=== PATIENT | male | born 1970 | race Caucasian/White ===

== ENCOUNTER 2016-11-01 06:12 | Emergency (ER) | payer OTHER, MEDICAID ==
[2016-11-01 06:18] VITALS: BP 130/85; PULSE 93; RESP 18; TEMP 97.9; O2SAT 96
[2016-11-01] MEDS ORDERED: IBUPROFEN 200 MG TAB PO ONE (06:30)
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
== END 2016-11-01 06:38 | disposition home or self-care (01) ==
DX: K08.89 Other specified disorders of teeth and supporting structures (principal); F17.200 Nicotine dependence, unspecified, uncomplicated

== ENCOUNTER 2016-12-19 19:49 | Emergency (ER) | payer OTHER, MEDICAID ==
[2016-12-19] MEDS ORDERED: LORazepam 1 MG TAB ONE (19:57)
--- NOTE | 2016-12-19 20:04 | EDPHY ---
H & P Time Seen by Provider: 12/19/16 19:52 HPI/ROS: CHIEF COMPLAINT: Anxiety HISTORY OF PRESENT ILLNESS: 46-year-old male presents to the emergency department by ambulance with the [place] [employer] under rest. The patient states that he is feeling very anxious. Apparently the patient was taken into police custody and when he found out he was going to residential, he apparently ran away. The patient was ultimately placed under arrest and was taken into custody. He was brought to the emergency department for his anxiety and medical clearance for residential. The patient tells me that he has a seizure disorder as well as chronic back pain. He takes clonazepam and oxycodone daily. He has been without this medication however at least since today. He does not know his last dose of clonazepam. He denies alcohol or other substance abuse. He has had seizure in the past. He states he is feeling very anxious and is requesting water. Denies pain in his chest. He denies headache. Does have chronic back pain. He denies pain in his upper or lower extremities. He does tell me that his left hand "doesn't work so good because of my back pain." REVIEW OF SYSTEMS: Constitutional: No fever, no chills. Eyes: No double or blurry vision. ENT: No sore throat. Respiratory: No cough, no shortness of breath. Cardiac: No chest pain. Gastrointestinal: No abdominal pain, vomiting or diarrhea. Genitourinary: No dysuria. Musculoskeletal: Chronic back pain as above. No neck pain. Skin: No rashes. Neurological: No headache. Past Medical/Surgical History: Anxiety, chronic pain Social History: Homeless Smoking Status: Current some day smoker Physical Exam: General Appearance: Alert, anxious. Tearful. No visible signs of trauma to his head. Eyes: Pupils equal and round. Extraocular motions are all intact. ENT: Mouth: Mucous membranes moist. Respiratory: No wheezing, rhonchi, or rales, lungs are clear to auscultation. Cardiovascular: Regular rate and rhythm. Tachycardic with a heart rate of 110. Gastrointestinal: Abdomen is soft and nontender, no masses, no rebound or guarding, bowel sounds normal. Neurological: Alert and oriented x 3, cranial nerves II through XII grossly intact Skin: Warm and dry, no rashes. Musculoskeletal: Nontender to palpate along the cervical, thoracic or lumbar spine. Neck is supple. No signs of trauma to his back. Extremities: Full range of motion and no peripheral edema. Psychiatric: Patient is oriented X 3, there is no agitation. Constitutional: Initial Vital Signs Temperature (C) 36.4 C 12/19/16 19:51 Heart Rate 115 H 12/19/16 19:51 Respiratory Rate 22 H 12/19/16 19:51 Blood Pressure 150/85 H 12/19/16 19:51 O2 Sat (%) 95 12/19/16 19:51 O2 Delivery Mode Room Air Allergies/Adverse Reactions: clindamycin Allergy (Severe, Verified 11/01/16 06:18) Hives trazodone Allergy (Severe, Verified 11/01/16 06:18) Swelling/neck,face,throat Penicillins Allergy (Unknown, Verified 11/01/16 06:18) aspirin Allergy (Verified 11/01/16 06:18) Home Medications: Medication Instructions Recorded LORazepam 12/31/15 oxyCODONE/APAP 5/325 [Percocet 1 - 2 tab PO Q4-6PRN PRN 12/31/15 5/325] HYDROcodone/APAP 10/325 [[place] 1 - 2 each PO Q4-6PRN PRN #20 tab 07/19/16 10/325] Medical Decision Making ED Course/Re-evaluation: 46-year-old homeless male presents to the emergency department for medical clearance for residential. He is extremely anxious. He tells me that he has been without his benzodiazepines, clonazepam, and has had seizures in the past. The patient was given 1 mg of Ativan p.o. in the emergency department. His vital signs remained stable. He was tachycardic initially when he was very anxious and tearful. He understands that he has been medically cleared for residential be discharged with the [place] [employer]. We did try to obtain EKG, however the patient was tremulous and this was unobtainable. The patient tells me that he has no chest pain. He will be discharged. Differential Diagnosis: Including but not limited to anxiety, depression, substance abuse, alcohol withdrawal, seizure disorder, medication noncompliance, narcotic dependence Departure - Departure Disposition: Home, Routine, Self-Care Clinical Impression: Anxiety Condition: Good Instructions: Anxiety (ED) Additional Instructions: You have been medically cleared for residential.
[2016-12-19 20:26] VITALS: BP 152/90; PULSE 106; RESP 20; O2SAT 93
--- NOTE | 2016-12-19 20:39 | CPEKG ---
Heart Rate: 112 RR Interval: 536 P-R Interval: 100 QRSD Interval: 106 QT Interval: 332 QTC Interval: 453 P Como: 0 QRS Como: 54 T Wave Como: 34 EKG Severity - ABNORMAL ECG - EKG Impression: SINUS TACHYCARDIA EKG Impression: RIGHT ATRIAL ABNORMALITY Electronically Signed By: Barbara Simon 20-Dec-2016 10:06:53
[2016-12-19 21:05] VITALS: TEMP 97.9
== END 2016-12-19 21:05 | disposition home or self-care (01) ==
LOC: EDUNIT#
DX: F41.9 Anxiety disorder, unspecified (principal); F17.200 Nicotine dependence, unspecified, uncomplicated

== ENCOUNTER 2017-03-26 15:53 | Emergency (ER) | payer OTHER, MEDICAID ==
--- NOTE | 2017-03-26 16:09 | EDPHY ---
H & P Time Seen by Provider: 03/26/17 15:53 HPI/ROS: CHIEF COMPLAINT: Seizure HISTORY OF PRESENT ILLNESS: 46-year-old male presents to the emergency department by ambulance with [place] [employer] under arrest and needs medical clearance for prison. The patient apparently has a history of seizure disorder and takes clonazepam. He also has chronic back pain and takes oxycodone daily. He has been without his medication for a few days. He was also found by police to have "bags of meth" although the patient states that those are not his and he is just collecting the bags to dispose of them. He is concerned that he is going to have a seizure. He apparently told EMS that he has been having seizures day long. Apparently in transport to the hospital patient states that he was having seizures even while he was alert and oriented x4 for EMS. The patient has chronic back pain. He has chronic pain in his left hand with a history of a previous fracture. He denies chest pain or difficulty breathing. Denies abdominal pain. Per EMS when the patient found out that he was going to be taken to prison, he apparently started shaking violently although still able to converse and talk with EMS. Patient was seen in the emergency department 12/19/2016 with very similar presentation for medical clearance for prison. REVIEW OF SYSTEMS: Constitutional: No fever, no chills. Eyes: No double or blurry vision. ENT: No sore throat. Respiratory: No cough, no shortness of breath. Cardiac: No chest pain. Gastrointestinal: No abdominal pain, vomiting or diarrhea. Genitourinary: No dysuria. Musculoskeletal: Chronic back pain. No neck pain. Skin: No rashes. Neurological: No headache. Past Medical/Surgical History: chronic back pain, substance abuse Social History: and lives in [place] Smoking Status: Current some day smoker Physical Exam: General Appearance: Alert, no distress. Diaphoretic. Extremely anxious. The patient is tremulous. Has a heart rate of 120. No physical signs of trauma to his head. Eyes: Pupils equal and round. Extraocular motions are all intact. ENT: Mouth: Mucous membranes moist. Respiratory: No wheezing, rhonchi, or rales, lungs are clear to auscultation. Cardiovascular: Regular rate and rhythm. Gastrointestinal: Abdomen is soft and nontender, no masses, no rebound or guarding, bowel sounds normal. Neurological: Alert and oriented x 3, cranial nerves II through XII grossly intact Skin: Warm and dry, no rashes. Musculoskeletal: Nontender to palpate along the cervical, thoracic or lumbar spine. Neck is supple. Extremities: Full range of motion and no peripheral edema. Psychiatric: Agitated. Constitutional: Initial Vital Signs Temperature (C) 36.8 C 03/26/17 16:11 Heart Rate 118 H 03/26/17 16:11 Respiratory Rate 20 03/26/17 16:11 Blood Pressure 118/76 03/26/17 16:11 O2 Sat (%) 95 03/26/17 16:11 O2 Delivery Mode Room Air Allergies/Adverse Reactions: clindamycin Allergy (Severe, Verified 03/26/17 16:04) Hives trazodone Allergy (Severe, Verified 03/26/17 16:04) Swelling/neck,face,throat Penicillins Allergy (Unknown, Verified 03/26/17 16:04) aspirin Allergy (Verified 03/26/17 16:04) Home Medications: Medication Instructions Recorded LORazepam 12/31/15 oxyCODONE/APAP 5/325 [Percocet 1 - 2 tab PO Q4-6PRN PRN 12/31/15 5/325] HYDROcodone/APAP 10/325 [Sigel 1 - 2 each PO Q4-6PRN PRN #20 tab 07/19/16 10/325] Medical Decision Making ED Course/Re-evaluation: 46-year-old male with a history of substance abuse and chronic back pain presents to the emergency department in custody with police and complaining that he is having seizures. The patient is tremulous and seems to be voluntarily twitching. He is conversational throughout all of this. I do not think he is having a seizure. This was explained to the patient. The patient thinks that he is likely experiencing symptoms of withdrawal. I agree with this. He was given a mg of Ativan in the emergency department as well as IV normal saline. His heart rate did come down to 100. The charge nurse did speak with the prison and they are aware of his voluntary twitching. The patient has been medically cleared and will be discharged with EMS to prison. Differential Diagnosis: Including but not limited to substance abuse, benzodiazepine withdrawal electrolyte abnormality, alcohol withdrawal, medication noncompliance, head injury, and breakthrough seizure. - Data Points Medications Given: Discontinued Medications Sodium Chloride (Ns) 1,000 mls @ 0 mls/hr IV ONCE ONE PRN Reason: Wide Open Stop: 03/26/17 16:13 Last Admin: 03/26/17 16:19 Dose: 1,000 mls Lorazepam (Ativan Injection) 1 mg IVP EDNOW ONE Stop: 03/26/17 16:12 Last Admin: 03/26/17 16:18 Dose: 1 mg Departure - Departure Disposition: Home, Routine, Self-Care Clinical Impression: Substance abuse Medication withdrawal Qualifiers: Substance type: opioid Qualified Code(s): F11.23 - Opioid dependence with withdrawal Condition: Fair Instructions: Methamphetamine Abuse (ED), Polysubstance Abuse (ED), Opioid Withdrawal (ED) Additional Instructions: You have been medically cleared for prison. You should continue your medications as prescribed. Referrals: Patient,NotPresent [Unknown] - As per Instructions
[2017-03-26] MEDS ORDERED: LORazepam 2 MG/ML INJ IVP ONE (16:11)
[2017-03-26] MEDS ORDERED: NS 1,000 ML IV ONE (16:12)
[2017-03-26 16:16] VITALS: TEMP 98.2
[2017-03-26 17:08] VITALS: BP 121/90; PULSE 105; RESP 16; O2SAT 97
== END 2017-03-26 17:06 | disposition home or self-care (01) ==
LOC: EDUNIT#
DX: F11.23 Opioid dependence with withdrawal (principal); F19.10 Other psychoactive substance abuse, uncomplicated; F17.200 Nicotine dependence, unspecified, uncomplicated
CPT/HCPCS: 96361; 96374; 99284; J2060

== ENCOUNTER 2017-06-27 22:02 | Emergency (ER) | payer OTHER, MEDICAID ==
--- NOTE | 2017-06-27 22:19 | EDPHY ---
H & P Stated Complaint: chemical intoxication Time Seen by Provider: 06/27/17 22:06 HPI/ROS: Chief Complaint: Anxious, dry tongue HPI: 46-year-old male well known to this emergency department being brought in by EMS and police for medical clearance. EMS suspected the patient has been using methamphetamine tonight. Patient states that he has not used any drugs for "quite some time ". States he is feeling a little agitated right now but most concerned that his tongue feels like it is swollen and his mouth feels very dry. He also states he has a seizure disorder but denies any recent seizure activity. He is noncompliant with medications. Denies any fevers or chills. No falls or head injuries. No nausea or vomiting. No chest pain or shortness of breath. ROS: 10 point Review of Systems is negative except as noted in the HPI. PMH: Seizure disorder, chronic methamphetamine abuse Social History: Positive smoking, positive alcohol, positive methamphetamine abuse Family History: non-contributory Physical Exam: Gen: Awake, Alert, anxious and mildly agitated, tremulous but this is distractible any stops shaking when he is speaking to me. HEENT: Nose: no rhinorrhea Eyes: PERRLA, EOMI Mouth: Dry mucosa, tongue is not edematous, no oral pharyngeal edema, uvula is midline. There is no erythema or discharge Neck: Supple, no JVD, no masses Chest: nontender, lungs clear to auscultation Heart: S1, S2 normal, no murmur Abd: Soft, non-tender, no guarding Back: no CVA tenderness, no midline tenderness Ext: no edema, non-tender Skin: no rash Neuro: CN II-XII intact, Sensation grossly intact, Strength 5/5 in bilateral upper and lower extremities - Personal History Current Tetanus Diphtheria and Acellular Pertussis (TDAP): Yes Tetanus Vaccine Date: 2012 - Medical/Surgical History Hx Asthma: No Hx Chronic Respiratory Disease: No Hx Diabetes: No Hx Cardiac Disease: No Hx Renal Disease: No Hx Cirrhosis: No Hx Alcoholism: No Hx HIV/AIDS: No Hx Splenectomy or Spleen Trauma: No Other PMH: medical :anxiety, chronic back pain 2nd to fall-2008. surgery tonsillectomy, oral surgeries R/T fall. concussion R/T fall, previous broken jaw. - Social History Smoking Status: Current some day smoker Constitutional: Initial Vital Signs Temperature (C) 36.4 C 06/27/17 22:08 Heart Rate 116 H 06/27/17 22:08 Respiratory Rate 16 06/27/17 22:08 Blood Pressure 103/101 H 06/27/17 22:08 O2 Sat (%) 95 06/27/17 22:08 O2 Delivery Mode Room Air Allergies/Adverse Reactions: clindamycin Allergy (Severe, Verified 03/26/17 16:04) Hives trazodone Allergy (Severe, Verified 03/26/17 16:04) Swelling/neck,face,throat Penicillins Allergy (Unknown, Verified 03/26/17 16:04) aspirin Allergy (Verified 03/26/17 16:04) Home Medications: Medication Instructions Recorded LORazepam 12/31/15 oxyCODONE/APAP 5/325 [Percocet 1 - 2 tab PO Q4-6PRN PRN 12/31/15 5/325] HYDROcodone/APAP 10/325 [[place] 1 - 2 each PO Q4-6PRN PRN #20 tab 07/19/16 10/325] Medical Decision Making ED Course/Re-evaluation: Patient brought in by police and EMS for medical clearance. Patient clinically appears he has been using methamphetamine. My examination he is tachycardic at 110. He is mildly agitated but is distractible. He is complaining of tongue swelling however he has no evidence of any angioedema on examination. He has a mildly dry mucosa. Given oral fluids here. He is tolerating this well. He is otherwise no evidence of any trauma or any other acute medical process at this time. He has not had any chest pain or shortness of breath. No evidence of any seizure disorder. Symptoms are consistent with methamphetamine use. Patient has had multiple presentations for the same. I do not see any evidence of acute allergic reaction, no evidence of a infectious process, no evidence of a of a cardiovascular process. Will discharge him into the custody of police. He is medically clear for halfway. Departure - Departure Disposition: Home, Routine, Self-Care Clinical Impression: Substance abuse Condition: Good Instructions: Polysubstance Abuse (ED) Additional Instructions: MEDICALLY CLEAR FOR LONG TERM Referrals: [facility],. [Clinic] - As per Instructions
[2017-06-27 22:51] VITALS: BP 130/101; PULSE 106; RESP 18; TEMP 96.8; O2SAT 96
== END 2017-06-27 22:51 | disposition home or self-care (01) ==
LOC: EDUNIT#
DX: F19.10 Other psychoactive substance abuse, uncomplicated (principal); F17.200 Nicotine dependence, unspecified, uncomplicated

== ENCOUNTER 2018-01-10 18:51 | Emergency (ER) | payer OTHER, MEDICAID ==
[2018-01-10] MEDS ORDERED: LORazepam 2 MG/ML INJ ONE (18:57)
[2018-01-10] MEDS ORDERED: NS 1,000 ML IV ONE (19:10)
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
[2018-01-10 20:05] VITALS: BP 140/92
== END 2018-01-10 20:32 ==
LOC: EDUNIT#
DX: F15.10 Other stimulant abuse, uncomplicated (principal); F17.200 Nicotine dependence, unspecified, uncomplicated
CPT/HCPCS: J2060

== ENCOUNTER 2018-01-10 21:05 | Emergency (ER) | payer OTHER, MEDICAID ==
[2018-01-10] MEDS ORDERED: HALOPERIDOL LACT 5 MG/ML INJ ONE (21:13)
[2018-01-10] MEDS ORDERED: MIDAZOLAM 2 MG/2 ML VIAL ONE (21:14)
[2018-01-10] MEDS ORDERED: MIDAZOLAM 2 MG/2 ML VIAL IVP ONE (21:17)
[2018-01-10] MEDS ORDERED: HALOPERIDOL LACT 5 MG/ML INJ IVP ONE (21:17)
[2018-01-10] MEDS ORDERED: NS 1,000 ML IV ONE ×2 (21:19→21:39)
[2018-01-10 21:45] LABS: PLATELET COUNT 679 10^3/uL (150-400)
[2018-01-10 22:00] LABS: CREATINE KINASE 503 IU/L (0-224)
--- NOTE | 2018-01-10 22:01 | EDPHY ---
H & P Smoking Status: Current some day smoker Time Seen by Provider: 01/10/18 21:09 HPI/ROS: HPI Methamphetamine induced psychosis. 47-year-old male, seen in the emergency department by myself earlier this evening. He was medically cleared for [facility] in sent to [facility] with [employer] police. He was, cooperative up until the point he got to [facility] then he became extremely agitated and combative. He was sent back to the emergency department by the [facility] nursing staff for further evaluation and management here. Other than intramuscular ketamine, 30 mg, which she received by EMS on the way to the emergency department earlier he has not received any additional medications. There is no new history of trauma. ROS: Unable to obtain. Past medical history: Methamphetamine abuse, polysubstance abuse. Social history: Smoker. Here by himself. As above. Physical Exam: General Appearance: Alert, intermittently combative, agitated, yelling at staff. Dirty and disheveled. This patient general appears well-hydrated and well-nourished. Head: Normocephalic atraumatic. Eyes: Pupils equal and round 4-2 mm bilaterally, no pallor or injection. No lid edema, erythema or injection. ENT, Mouth: Mucous membranes are moist. The pharyngeal tissues are unremarkable. No edema or swelling. No asymmetry suggestive of abscess. No erythema or exudates. Poor dentition, dirt around his lips. No tongue lacerations. Respiratory: There are no retractions, lungs are clear to auscultation with good air movement bilaterally. Cardiovascular: Regular rate and rhythm. Tachycardia. No murmur. Gastrointestinal: Abdomen is soft and nontender, no masses, bowel sounds normal. No focal tenderness at McBurney's point. No Jacobo sign. Neurological: Motor sensory function is grossly intact. Cranial nerves are normal. Skin: Warm and dry, no rashes. Musculoskeletal: Neck is supple and nontender. Extremities are symmetrical. All joints range without pain or impingement. Psychiatric: Agitation as noted. Database: EKG: Imaging: Procedures: Emergency department course: Vital signs reviewed. The patient was placed in 4 point restraints on arrival secondary to his combativeness and danger to self and others. After we had him restrained the patient was given 10 mg of IV Haldol and 2 mg of IV Versed. Sarabia catheter was placed. He was started on normal saline with 1 L to be given over the next hour. 10:00 p.m., patient re-evaluated. Currently sleeping comfortably. Tachycardia has resolved. monitoring coordinator shows a narrow complex sinus rhythm with ventricular rate of 91. Blood pressure 115/71, pulse oximetry 95% on room air. At this time the plan is to allow the patient to sleep and metabolize. Blood work and urine tox screen reviewed. Blood work significant for a CK of 506, leukocytosis and thrombocytosis. Urine tox screen positive for amphetamines opiates marijuana and cocaine. 11:00 p.m., patient currently sleeping comfortably. Vital signs are normal. monitoring coordinator shows a narrow complex sinus rhythm with ventricular rate of 82. He will be given 1/3 L, lactated Ringer's, run over 4 hr. CK and blood work to be rechecked in the morning. Care turned over to Dr. Cruz at 11:00 p.m.. Differential Diagnosis: The differential diagnosis on this patient includes but is not limited to methamphetamine induced psychosis. Traumatic brain injury, suicidal ideation unlikely. This represents a partial list of diagnoses considered. These considerations are based on history, physical exam, past history, reassessment and diagnostic testing. (Leigh Ugarte) 3:00 a.m.- The patient received a total of 3 L of IV fluids. He is now awake and drinking water. He denies any complaint. He has not required any medication from [facility]. He had labs redrawn. His white blood cell count has decreased as well as his platelet count. Both are still elevated, however patient is not exhibiting any signs of sepsis or serious infection. CK is trending downward. His slightly elevated creatinine has improved. I feel at this time, he can be discharged to the [facility]. (Susannah Cruz) Constitutional: Initial Vital Signs Temperature (C) 36.9 C 01/10/18 21:30 Heart Rate 99 01/10/18 21:30 Respiratory Rate 16 01/10/18 21:30 Blood Pressure 109/66 01/10/18 21:30 O2 Sat (%) 92 01/10/18 21:30 O2 Delivery Mode Room Air Allergies/Adverse Reactions: clindamycin Allergy (Severe, Verified 03/26/17 16:04) Hives trazodone Allergy (Severe, Verified 03/26/17 16:04) Swelling/neck,face,throat Penicillins Allergy (Unknown, Verified 03/26/17 16:04) aspirin Allergy (Verified 03/26/17 16:04) Home Medications: Medication Instructions Recorded LORazepam 12/31/15 oxyCODONE/APAP 5/325 [Percocet 1 - 2 tab PO Q4-6PRN PRN 12/31/15 5/325] HYDROcodone/APAP 10/325 [Allen 1 - 2 each PO Q4-6PRN PRN #20 tab 07/19/16 10/325] - Data Points Laboratory Results: Laboratory Results 01/11/18 02:12 01/11/18 02:12 01/11/18 01/11/18 01/10/18 02:12 02:12 21:15 WBC 18.30 10^3/uL H 10^3/uL (3.80-9.50) RBC 4.12 10^6/uL L 10^6/uL (4.40-6.38) Hgb 10.9 g/dL L g/dL (13.7-17.5) Hct 35.3 % L % (40.0-51.0) MCV 85.7 fL fL (81.5-99.8) MCH 26.5 pg L pg (27.9-34.1) MCHC 30.9 g/dL L g/dL (32.4-36.7) RDW 15.2 % % (11.5-15.2) Plt Count 504 10^3/uL H 10^3/uL (150-400) MPV 8.8 fL fL (8.7-11.7) Neut % (Auto) 80.5 % H % (39.3-74.2) Lymph % (Auto) 14.1 % L % (15.0-45.0) [place] % (Auto) 4.7 % % (4.5-13.0) Eos % (Auto) 0.2 % L % (0.6-7.6) Baso % (Auto) 0.2 % L % (0.3-1.7) Nucleat RBC Rel Count 0.0 % % (0.0-0.2) Absolute Neuts (auto) 14.74 10^3/uL H 10^3/uL (1.70-6.50) Absolute Lymphs (auto) 2.58 10^3/uL 10^3/uL (1.00-3.00) Absolute Monos (auto) 0.86 10^3/uL H 10^3/uL (0.30-0.80) Absolute Eos (auto) 0.04 10^3/uL 10^3/uL (0.03-0.40) Absolute Basos (auto) 0.03 10^3/uL 10^3/uL (0.02-0.10) Absolute Nucleated RBC 0.00 10^3/uL 10^3/uL (0-0.01) Immature Gran % 0.3 % % (0.0-1.1) Immature Gran # 0.05 10^3/uL 10^3/uL (0.00-0.10) Sodium 145 mEq/L mEq/L (135-145) Potassium 4.5 mEq/L mEq/L (3.3-5.0) Chloride 111 mEq/L H mEq/L (97-110) Carbon Dioxide 21 mEq/l L mEq/l (22-31) Anion Gap 13 mEq/L mEq/L (8-16) BUN 8 mg/dL mg/dL (7-23) Creatinine 1.0 mg/dL mg/dL (0.7-1.3) Estimated GFR > 60 Glucose 87 mg/dL mg/dL (70-100) Calcium 8.3 mg/dL L mg/dL (8.5-10.4) Total Bilirubin 0.5 mg/dL mg/dL (0.1-1.4) AST 27 IU/L IU/L (17-59) ALT 30 IU/L IU/L (21-72) Alkaline Phosphatase 98 IU/L IU/L (38-126) Creatine Kinase 492 IU/L H IU/L (0-224) CK-MB (CK-2) Fraction Pending CK-MB (CK-2) % Pending Creatine Kinase Interp Pending Total Protein 6.5 g/dL g/dL (6.3-8.2) Albumin 3.2 g/dL L g/dL (3.5-5.0) Urine Opiates Screen NON-NEGATIVE H (NEGATIVE) Urine Barbiturates NEGATIVE (NEGATIVE) Ur Phencyclidine Scrn NEGATIVE (NEGATIVE) Ur Amphetamine Screen NON-NEGATIVE H (NEGATIVE) U Benzodiazepines Scrn NEGATIVE (NEGATIVE) Urine Cocaine Screen NON-NEGATIVE H (NEGATIVE) U Marijuana (THC) Screen NON-NEGATIVE H (NEGATIVE) Ethyl Alcohol 01/10/18 01/10/18 21:15 21:15 WBC 21.38 10^3/uL H 10^3/uL (3.80-9.50) RBC 4.49 10^6/uL 10^6/uL (4.40-6.38) Hgb 12.1 g/dL L g/dL (13.7-17.5) Hct 37.7 % L % (40.0-51.0) MCV 84.0 fL fL (81.5-99.8) MCH 26.9 pg L pg (27.9-34.1) MCHC 32.1 g/dL L g/dL (32.4-36.7) RDW 15.2 % % (11.5-15.2) Plt Count 679 10^3/uL H 10^3/uL (150-400) MPV 9.0 fL fL (8.7-11.7) Neut % (Auto) 85.5 % H % (39.3-74.2) Lymph % (Auto) 7.7 % L % (15.0-45.0) [place] % (Auto) 5.5 % % (4.5-13.0) Eos % (Auto) 0.4 % L % (0.6-7.6) Baso % (Auto) 0.3 % % (0.3-1.7) Nucleat RBC Rel Count 0.0 % % (0.0-0.2) Absolute Neuts (auto) 18.30 10^3/uL H 10^3/uL (1.70-6.50) Absolute Lymphs (auto) 1.64 10^3/uL 10^3/uL (1.00-3.00) Absolute Monos (auto) 1.17 10^3/uL H 10^3/uL (0.30-0.80) Absolute Eos (auto) 0.09 10^3/uL 10^3/uL (0.03-0.40) Absolute Basos (auto) 0.06 10^3/uL 10^3/uL (0.02-0.10) Absolute Nucleated RBC 0.00 10^3/uL 10^3/uL (0-0.01) Immature Gran % 0.6 % % (0.0-1.1) Immature Gran # 0.12 10^3/uL H 10^3/uL (0.00-0.10) Sodium 146 mEq/L H mEq/L (135-145) Potassium 4.6 mEq/L mEq/L (3.3-5.0) Chloride 107 mEq/L mEq/L (97-110) Carbon Dioxide 23 mEq/l mEq/l (22-31) Anion Gap 16 mEq/L mEq/L (8-16) BUN 10 mg/dL mg/dL (7-23) Creatinine 1.4 mg/dL H mg/dL (0.7-1.3) Estimated GFR 54 Glucose 95 mg/dL mg/dL (70-100) Calcium 9.9 mg/dL mg/dL (8.5-10.4) Total Bilirubin AST ALT Alkaline Phosphatase Creatine Kinase 503 IU/L H IU/L (0-224) CK-MB (CK-2) Fraction 4.60 ng/mL H ng/mL (0.00-4.55) CK-MB (CK-2) % 0.9 % % (0.0-4.0) Creatine Kinase Interp NEGATIVE (NEGATIVE) Total Protein Albumin Urine Opiates Screen Urine Barbiturates Ur Phencyclidine Scrn Ur Amphetamine Screen U Benzodiazepines Scrn Urine Cocaine Screen U Marijuana (THC) Screen Ethyl Alcohol < 10 mg/dL mg/dL (0-10) Medications Given: Lactated Ringer's (Lr) 1,000 mls @ 250 mls/hr IV CONT FANY Stop: 07/09/18 23:29 Last Admin: 01/10/18 23:07 Dose: 1,000 mls Discontinued Medications Haloperidol Lactate (Haldol Injection) 10 mg IVP EDNOW ONE Stop: 01/10/18 21:18 Last Admin: 01/10/18 21:18 Dose: 10 mg Sodium Chloride (Ns) 1,000 mls @ 0 mls/hr IV ONCE ONE; Wide Open PRN Reason: Protocol Stop: 01/10/18 21:20 Last Admin: 01/10/18 21:20 Dose: 1,000 mls Sodium Chloride (Ns) 1,000 mls @ 0 mls/hr IV ONCE ONE; Wide Open PRN Reason: Protocol Stop: 01/10/18 21:40 Last Admin: 01/10/18 21:46 Dose: 1,000 mls Midazolam HCl (Versed) 2 mg IVP EDNOW ONE Stop: 01/10/18 21:18 Last Admin: 01/10/18 21:18 Dose: 2 mg Departure - Departure Disposition: Law Enforcement/Court/[facility] Clinical Impression: Methamphetamine abuse, Methamphetamine-induced psychotic disorder, Leukocytosis , Thrombocytosis, Polysubstance abuse Condition: Good Instructions: Polysubstance Abuse (ED) Referrals: [facility],. [Clinic] - As per Instructions
[2018-01-10] MEDS ORDERED: LR 1,000 ML IV SCH (23:30)
[2018-01-11 02:27] LABS: PLATELET COUNT 504 10^3/uL (150-400)
[2018-01-11 02:48] LABS: CREATINE KINASE 492 IU/L (0-224)
[2018-01-11 03:55] VITALS: BP 117/67
== END 2018-01-11 03:54 ==
LOC: EEVIPCON 21:05
PROC: 0T9B70Z Drainage of Bladder with Drainage Device, Via Natural or Artificial Opening (ICD-10-PCS; principal; 2018-01-10)
DX: F15.159 Other stimulant abuse with stimulant-induced psychotic disorder, unspecified (principal); D72.829 Elevated white blood cell count, unspecified; D47.3 Essential (hemorrhagic) thrombocythemia; F19.10 Other psychoactive substance abuse, uncomplicated; F17.200 Nicotine dependence, unspecified, uncomplicated; E86.9 Volume depletion, unspecified
CPT/HCPCS: 51702; 96361; 96374; 96375; 99285; J1630; J2250; 80305; G0480